=== PATIENT | male | born 1990 | race African-American/Black ===

== ENCOUNTER 2018-05-19 02:40 | Emergency (ER) | payer OTHER ==
[~2018-05-19] VITALS: Ht 188 cm; Wt 79.4 kg
--- NOTE | 2018-05-19 02:53 | NUR ---
Ambulated to ER Room 2A, c/o left knee swelling and pain.
--- NOTE | 2018-05-19 03:20 | NUR ---
Seen and evaluated by Dr. Mark.
[2018-05-19] MEDS ORDERED: KETOROLAC TROMETHAMINE 30 MG INJ ONE (03:29)
[2018-05-19] MEDS ORDERED: KETOROLAC TROMETHAMINE 30 MG INJ IM ONE (03:30)
--- NOTE | 2018-05-19 04:32 | NUR ---
Patient discharged to home in stable conditon. Written and verbal after care instructions given. Patient verbalizes understanding of instructions.
== END 2018-05-19 04:32 | disposition home or self-care (01) ==
LOC: ER 02:46
DX: M25.562 Pain in left knee (principal); R22.42 Localized swelling, mass and lump, left lower limb; X50.1XXA Overexertion from prolonged static or awkward postures, initial encounter; Y93.02 Activity, running; Y92.89 Other specified places as the place of occurrence of the external cause; Y99.8 Other external cause status
CPT/HCPCS: A4663; J1885